=== PATIENT | female | born 1955 | race Caucasian/White ===

== ENCOUNTER 2017-04-04 20:43 | Emergency (ER) | payer OTHER ==
[~2017-04-04] VITALS: Ht 167.6 cm; Wt 93.6 kg
[~2017-04-04 20:43] MED LIST: DIOVAN320 MG PO; FISH OIL CONCEN1 SG2 PO; HYGROTON 2525 MG/TAB PO; NATURAL POTASS595 MG PO; NORCO 325 MG-7.1 TAB PO; PRENATAL1 TA7 PO; PRILOSEC 20MG20 MG PO; TOPROL XL100 MG PO
[2017-04-04 20:45] VITALS: TEMP 97
[2017-04-04 21:08] LABS: HEMATOCRIT 39.2 % (37.0-47.0); HEMOGLOBIN 13.7 g/dl (12.5-16.0); MEAN CELL VOLUME 94 fl (80.0-100.0); MEAN CORPUSCULAR HEMOGLOBIN 33 pg (27.0-31.0); MEAN CORPUSCULAR HGB CONC 35 g/dl (33.0-37.0); MEAN PLATELET VOLUME 9.8 fl (7.4-10.4); PLATELET COUNT 341 K/mm3 (130-400); RED BLOOD COUNT 4.16 M/mm3 (4.10-5.30); REDCELL DISTRIBUTION WIDTH-CV 12.9 % (11.5-14.5); WHITE BLOOD COUNT 11.5 K/mm3 (4.8-10.8)
[2017-04-04 21:16] LABS: ADD PATHOLOGY DIFF REVIEW NO
[2017-04-04 21:25] LABS: ADJUSTED CALCIUM 9.2 mg/dL (8.4-10.2); ALBUMIN 4.8 gm/dL (3.5-5.0); BILIRUBIN,TOTAL 0.7 mg/dL (0.0-1.0); C-REACTIVE PROTEIN 1.4 mg/dL (0.0-0.9); CALCIUM 9.8 mg/dL (8.4-10.2); CREATININE, serum 0.61 mg/dL (0.52-1.25); POTASSIUM 3.5 mmol/L (3.4-5.0); TOTAL PROTEIN 8.4 gm/dL (6.4-8.2)
[2017-04-04 21:33] LABS: BAND 1 % (0-10); EOSINOPHIL 2 % (0-4); NEUTROPHILS 48 % (42.0-75.2); PLATELET ESTIMATE NORMAL (NORMAL); TOTAL CELLS COUNTED 100
[2017-04-04] MEDS ORDERED: PHENERGAN 25 TA25 MG PO (23:36)
[2017-04-04] MEDS ORDERED: NORCO 325 MG-51 TAB PO (23:36)
[2017-04-04 23:57] VITALS: BP 145/90; PULSE 67
== END 2017-04-04 23:57 | disposition home or self-care (01) ==
LOC: COL.ER 20:43
PROVIDERS: Emergency Medicine
DX: R10.11 Right upper quadrant pain (principal); R11.2 Nausea with vomiting, unspecified; I10 Essential (primary) hypertension; Z90.710 Acquired absence of both cervix and uterus; Z90.49 Acquired absence of other specified parts of digestive tract; Z90.10 Acquired absence of unspecified breast and nipple
CPT/HCPCS: J1170; J2060; J2405; J2765; J7030

== ENCOUNTER 2017-04-09 09:28 | Observation (INO) | payer OTHER ==
[~2017-04-09] VITALS: Ht 167.6 cm; Wt 91.0 kg
[~2017-04-09 09:28] MED LIST changes: +NORCO 325 MG-51 TAB PO; +PHENERGAN 25 TA25 MG PO
[2017-04-09 10:43] LABS: BASO # 0.1 (0.0-0.2); BASO % 0.8 % (0.0-2.0); EOS # 0.1 (0.0-0.7); EOS % 1.4 % (0-4.0); GRAN # 3.9 (1.4-6.5); GRAN % 62.2 % (42.2-75.2); HEMATOCRIT 39.7 % (37.0-47.0); HEMOGLOBIN 13.7 g/dl (12.5-16.0); LYMPH # 1.7 (1.2-3.4); LYMPH % 27.3 % (20.0-51.0); MEAN CELL VOLUME 96 fl (80.0-100.0); MEAN CORPUSCULAR HEMOGLOBIN 33 pg (27.0-31.0); MEAN CORPUSCULAR HGB CONC 35 g/dl (33.0-37.0); MEAN PLATELET VOLUME 9.8 fl (7.4-10.4); MONO # 0.5 (0.1-0.6); PLATELET COUNT 350 K/mm3 (130-400); RED BLOOD COUNT 4.12 M/mm3 (4.10-5.30); REDCELL DISTRIBUTION WIDTH-CV 12.9 % (11.5-14.5); WHITE BLOOD COUNT 6.3 K/mm3 (4.8-10.8)
[2017-04-09 10:53] LABS: ADJUSTED CALCIUM 9.4 mg/dL (8.4-10.2); ALBUMIN 4.8 gm/dL (3.5-5.0); C-REACTIVE PROTEIN 0.9 mg/dL (0.0-0.9); CREATININE, serum 0.64 mg/dL (0.52-1.25); POTASSIUM 3.5 mmol/L (3.4-5.0); TOTAL PROTEIN 8.4 gm/dL (6.4-8.2)
[2017-04-09 11:09] LABS: PH 7 (5-8); SQUAMOUS EPITHELIAL None Seen /hpf; URINE APPEARANCE Clear; URINE BACTERIA None Seen /hpf; URINE BILIRUBIN Negative (NEGATIVE); URINE BLOOD Negative (NEGATIVE); URINE COLOR Straw; URINE GLUCOSE Negative (NEGATIVE); URINE KETONE Negative (NEGATIVE); URINE RBC 0-2 /hpf; URINE UROBILINOGEN Negative (NEGATIVE); URINE WBC 0-2 /hpf
[2017-04-09 12:00] VITALS: BP 140/70; PULSE 70; TEMP 98
[2017-04-09 14:44] VITALS: BP 140/70; PULSE 70; TEMP 98
[2017-04-09 15:56] VITALS: BP 130/69; PULSE 63; TEMP 98.8
[2017-04-09 19:51] VITALS: BP 150/69; PULSE 78; TEMP 98.4
[2017-04-09 23:20] VITALS: BP 114/60; PULSE 70; TEMP 97.6
[2017-04-10 03:57] VITALS: BP 114/58; PULSE 65; TEMP 98
[2017-04-10 08:39] VITALS: BP 105/56; PULSE 62; TEMP 97.8
[2017-04-10 10:55] VITALS: BP 115/67; PULSE 65; TEMP 97.8
[2017-04-10 15:20] VITALS: BP 93/51; PULSE 63; TEMP 98
[2017-04-10 19:46] VITALS: BP 103/45; PULSE 68; TEMP 99.5
[2017-04-11 02:43] VITALS: BP 110/60; PULSE 59; TEMP 97.8
[2017-04-11 07:44] VITALS: BP 104/81; PULSE 65; TEMP 96.9
[2017-04-11 08:05] VITALS: BP 148/79; PULSE 79; TEMP 98.7
[2017-04-11] MEDS ORDERED: VALIUM 5MG T5 MG/TAB PO (08:52)
[2017-04-11] MEDS ORDERED: PREDNISONE20 MG PO (08:52)
[2017-04-11] MEDS ORDERED: NORCO 325 MG-101 TAB PO (08:52)
[2017-04-11 12:03] VITALS: BP 130/65; PULSE 32; TEMP 97.9
== END 2017-04-11 13:00 | disposition home health service (06) ==
LOC: COL.ER 09:28 → MEDICAL 13:52
PROVIDERS: Nurse Practitioner
DX: M54.14 Radiculopathy, thoracic region (principal); M54.9 Dorsalgia, unspecified; C50.912 Malignant neoplasm of unspecified site of left female breast; Z79.811 Long term (current) use of aromatase inhibitors; K21.9 Gastro-esophageal reflux disease without esophagitis; I10 Essential (primary) hypertension; Z90.49 Acquired absence of other specified parts of digestive tract; Z87.891 Personal history of nicotine dependence
CPT/HCPCS: 99232-AI; G0378; G8978-GP; G8979-GP; G8987-GO; G8988-GO; G9654; J1650; J1885; J2270; J2405; J2704; J2930; J3010; J3360; J7030

== ENCOUNTER → 2017-04-23 | Outpatient (CLI) | payer OTHER ==
[~2017-04-23] MED LIST changes: +NORCO 325 MG-101 TAB PO; +PREDNISONE20 MG PO; +VALIUM 5MG T5 MG/TAB PO
== END ==
LOC: COL.RAD 08:35
DX: M47.814 Spondylosis without myelopathy or radiculopathy, thoracic region (principal); M48.04 Spinal stenosis, thoracic region
CPT/HCPCS: A9503

== ENCOUNTER → 2017-06-03 | Outpatient (CLI) | payer OTHER | LOC: COL.RAD 09:26 | DX: N23 Unspecified renal colic (principal); K57.30 Diverticulosis of large intestine without perforation or abscess without bleeding ==

== ENCOUNTER → 2017-06-06 | Outpatient (CLI) | payer OTHER | LOC: COL.RAD 07:39 | DX: K56.69 Other intestinal obstruction (principal); N89.8 Other specified noninflammatory disorders of vagina ==

== ENCOUNTER 2017-06-17 09:29 | Inpatient (IN) | payer OTHER ==
[~2017-06-17] VITALS: Ht 167.6 cm; Wt 84.2 kg
[2017-07-08] VITALS (12 sets, daily range): BP systolic 117–152; BP diastolic 60–85; PULSE 54–87; TEMP 97.1–98.9
[2017-07-08] MEDS ORDERED: CALCIUM 600/VIT1 CAP PO (08:32)
[2017-07-08] MEDS ORDERED: ARIMIDEX1 MG PO (08:32)
[2017-07-08] MEDS ORDERED: CYMBALTA 60MG60 MG PO (08:32)
[2017-07-08] MEDS ORDERED: VITAMIND3 5000 PO (08:33)
[2017-07-08 08:42] LABS: CALCIUM 9.5 mg/dL (8.4-10.2); CREATININE, serum 0.59 mg/dL (0.52-1.25)
[2017-07-08 18:28] LABS: HEMATOCRIT 37.5 % (37.0-47.0); HEMOGLOBIN 12.8 g/dl (12.5-16.0)
[2017-07-08 18:37] LABS: CALCIUM 8.8 mg/dL (8.4-10.2); CREATININE, serum 0.53 mg/dL (0.52-1.25)
[2017-07-09 02:28] VITALS: BP 146/70; PULSE 66; TEMP 98.9
[2017-07-09 06:04] VITALS: BP 126/65; PULSE 65; TEMP 98
[2017-07-09 08:48] LABS: HEMOGLOBIN 12.1 g/dl (12.5-16.0)
[2017-07-09 08:50] LABS: HEMATOCRIT 35.7 % (37.0-47.0)
[2017-07-09 08:56] LABS: CALCIUM 8.5 mg/dL (8.4-10.2); CREATININE, serum 0.57 mg/dL (0.52-1.25)
[2017-07-09 08:59] LABS: POTASSIUM 2.9 mmol/L (3.4-5.0)
[2017-07-09 11:50] VITALS: BP 126/65; PULSE 64; TEMP 98.4
[2017-07-09 15:50] VITALS: BP 120/69; PULSE 79; TEMP 97.9
[2017-07-09 20:00] VITALS: BP 114/63; PULSE 69; TEMP 99.6
[2017-07-10] VITALS: BP 113/55; PULSE 72; TEMP 93
[2017-07-10 04:39] VITALS: BP 133/74; PULSE 77; TEMP 97.9
[2017-07-10 09:27] VITALS: BP 127/67; PULSE 74; TEMP 98.3
[2017-07-10 13:37] VITALS: BP 126/65; PULSE 76; TEMP 98.6
[2017-07-10 17:54] VITALS: BP 138/73; PULSE 74; TEMP 98.2
[2017-07-10 21:09] VITALS: BP 132/59; PULSE 83; TEMP 98
[2017-07-11 03:26] VITALS: BP 145/74; PULSE 78; TEMP 98.4
[2017-07-11 06:33] LABS: HEMATOCRIT 30.4 % (37.0-47.0); HEMOGLOBIN 10.2 g/dl (12.5-16.0)
[2017-07-11 06:35] LABS: CALCIUM 8.4 mg/dL (8.4-10.2); CREATININE, serum 0.59 mg/dL (0.52-1.25); POTASSIUM 3.3 mmol/L (3.4-5.0)
[2017-07-11 09:33] VITALS: BP 107/58; PULSE 74; TEMP 98.9
[2017-07-11] MEDS ORDERED: NORCO 325 MG-7.1 TAB PO (09:35)
[2017-07-11] MEDS ORDERED: EFFER-K20 MEQ PO (09:35)
== END 2017-07-11 10:30 | disposition home or self-care (01) | DRG 330 ==
LOC: INPTSU 07-08 07:39 → SURG 07-08 07:39
PROVIDERS: Nurse Anesthetist, Certified Registered; Surgery
PROC: 0DTG0ZZ Resection of Left Large Intestine, Open Approach (ICD-10-PCS; principal; 2017-07-08 10:00)
DX: N82.4 Other female intestinal-genital tract fistulae (principal); K57.20 Diverticulitis of large intestine with perforation and abscess without bleeding; I10 Essential (primary) hypertension; E87.6 Hypokalemia; Z85.3 Personal history of malignant neoplasm of breast
CPT/HCPCS: A4315; J1170; J1650; J1720; J2405; J2704; J3010; J3480; J7120

== ENCOUNTER → 2017-07-31 | Outpatient (CLI) | payer OTHER ==
[~2017-07-31] MED LIST changes: +ARIMIDEX1 MG PO; +CALCIUM 600/VIT1 CAP PO; +CYMBALTA 60MG60 MG PO; +EFFER-K20 MEQ PO; +VITAMIND3 5000 PO
== END ==
LOC: MC.RAD 14:40
DX: Z12.31 Encounter for screening mammogram for malignant neoplasm of breast (principal); C77.3 Secondary and unspecified malignant neoplasm of axilla and upper limb lymph nodes; Z85.3 Personal history of malignant neoplasm of breast; Z98.890 Other specified postprocedural states

== ENCOUNTER → 2019-08-23 | Outpatient (CLI) | payer BC | LOC: MC.RAD 10:13 | DX: Z12.31 Encounter for screening mammogram for malignant neoplasm of breast (principal) ==

== ENCOUNTER → 2020-08-25 | Outpatient (CLI) | payer BC | LOC: MC.RAD 09:54 | DX: Z12.31 Encounter for screening mammogram for malignant neoplasm of breast (principal); Z85.3 Personal history of malignant neoplasm of breast ==

== ENCOUNTER → 2021-10-15 | Outpatient (CLI) | payer MEDICARE, BC | LOC: MC.RAD 12:49 | DX: Z12.31 Encounter for screening mammogram for malignant neoplasm of breast (principal) ==

== ENCOUNTER → 2022-10-16 | Outpatient (CLI) | payer MEDICARE, BC | LOC: MC.RAD 11:00 | DX: Z12.31 Encounter for screening mammogram for malignant neoplasm of breast (principal) ==

== ENCOUNTER → 2023-10-22 | Outpatient (CLI) | payer MEDICARE | LOC: MC.RAD 10:51 | DX: Z12.31 Encounter for screening mammogram for malignant neoplasm of breast (principal) ==

== ENCOUNTER → 2023-12-18 | Outpatient (CLI) | payer MEDICARE, BC | LOC: COL.VAS 11:31 | DX: I51.7 Cardiomegaly (principal) ==